=== PATIENT | female | born 1955 | race Caucasian/White ===

== ENCOUNTER 2024-10-23 13:04 | Outpatient (RCR) | payer MEDICARE, SELFPAY ==
--- NOTE | 2024-10-23 13:58 | CTCFLWUP_ITS ---
[facility] [address] [place], [place] [address] FOLLOW-UP NOTE Date: 10/23/2024 MR#: [id number] Name: JOSHUA FRIEND : 1955 Dx: C50.112 Malignant neoplasm of central portion of left female breast Identification. Patient with history of stage IIIc left breast CA and DCIS right breast. Had large 9.5 centimeters or T3 lesion and 22 positive lymph nodes. Status post bilateral mastectomy 2009 and reconstructive surgery 2010 all done in [facility] [place]. Adjuvant chemoradiation Avastin for 1 year postop according to patient. Does not ever remember being prescribed or taking any estrogen hormone regulators or Herceptin. PET scan unremarkable 09/11/2021. Repeat PET scan 09/17/2022 focal 1.4 cm uptake upper inner margin of reconstructed left breast SUV 7.94. There were nonspecific multifocal cutaneous uptake seen in the lower outer quadrant of the reconstructed left breast, lower SUV than the upper inner quadrant. An ultrasound done of the left breast 11/04/2022 revealing 2.3 cm probably benign likely foreign body in the left breast and follow-up ultrasound 3 months recommended. As I examine her today there is post surgical and radiation changes in the inner quadrant of the left breast. No clear sign of recurrence noted in either breast or regional nodes sites. Ordered an ultrasound of the left breast to be done at [facility] where she had it done previously and I will see her back in 3 months. Electronically signed by: Ridge Mortensen M.D. 10/23/2024 1:55 PM
== END 2024-11-14 23:59 | disposition home or self-care (01) ==
LOC: SCTC 13:04
PROVIDERS: PCP Physician Assistant; Referring Provider Physician Assistant; Visit Provider Radiology Therapeutic Radiology
DX: Z08 Encounter for follow-up examination after completed treatment for malignant neoplasm (principal); Z85.3 Personal history of malignant neoplasm of breast; Z90.13 Acquired absence of bilateral breasts and nipples; Z92.21 Personal history of antineoplastic chemotherapy
CPT/HCPCS: 99212; G0463

== ENCOUNTER → 2024-11-27 | Outpatient (CLI) | payer MEDICARE, SELFPAY ==
--- NOTE | 2024-11-27 13:30 | ECHO_ITS ---
Transthoracic Echo Report Ht (in): 63 Wt (lb): 130 Exam Location: Echo Lab Status: O Sales Porter: YOAN Massey^^^^ Indications: Procedure Performed: BP: / HR: MEASUREMENTS (Male / Female) Normal Values 2D ECHO LV Diastolic Diameter PLAX 4.5 cm 4.2 - 5.9 / 3.9 - 5.3 cm LV Systolic Diameter PLAX 2.8 cm IVS Diastolic Thickness 1.1 cm 0.6 - 1.0 / 0.6 - 0.9 cm LVPW Diastolic Thickness 1.1 cm 0.6 - 1.0 / 0.6 - 0.9 cm LV Relative Wall Thickness 0.5 LVOT Diameter 1.8 cm Aortic Root Diameter 3.3 cm LA Systolic Diameter LX 3.5 cm 3.0 - 4.0 / 2.7 - 3.8 cm DOPPLER AV Peak Velocity 123.5 cm/s AV Peak Gradient 6.1 mmHg AV Mean Gradient 4.0 mmHg AV Velocity Time Integral 23.1 cm LVOT Peak Velocity 94.6 cm/s LVOT Peak Gradient 3.6 mmHg LVOT Velocity Time Integral 23.9 cm AV Area Cont Eq vti 2.6 cm? AV Area Cont Eq pk 1.9 cm? MV Area PHT 3.3 cm? Mitral E Point Velocity 54.5 cm/s Mitral A Point Velocity 80.4 cm/s Mitral E to A Ratio 0.7 LV E' Lateral Velocity 8.5 cm/s Mitral E to LV E' Lateral Ratio 6.4 LV E' Septal Velocity 7.3 cm/s Mitral E to LV E' Septal Ratio 7.4 TR Peak Velocity 266.0 cm/s TR Peak Gradient 28.3 mmHg PV Peak Velocity 151.0 cm/s PV Peak Gradient 9.1 mmHg RVOT Peak Velocity 87.2 cm/s FINDINGS Left Ventricle Normal left ventricular size, wall thickness, systolic function with no obvious regional wall motion abnormalities. There is grade I diastolic dysfunction of the left ventricle (impaired relaxation pattern). The left ventricular ejection fraction is normal, estimated at 60-65%. Right Ventricle The right ventricle is normal in size and systolic function. The estimated right ventricular systolic pressure, 30 mmHg. Left Atrium The left atrium is normal by two-dimensional, color flow and Doppler imaging with no structural abnormalities, no thrombus formation present. Right Atrium The right atrium is normal by two-dimensional imaging, color flow and Doppler imaging with no structural abnormalities, no thrombus formation present. Atrial Septum The interatrial septum appears normal with no evidence of a shunt. Aorta The aorta is normal by two-dimensional, color flow and Doppler interrogation. Mitral Valve Trace to mild mitral regurgitation. Mild mitral annular calcification. Aortic Valve Aortic valve sclerosis. Tricuspid Valve There is mild tricuspid valve regurgitation. Pulmonic Valve Trivial pulmonic valve regurgitation. Vessels The pulmonary artery appears normal. The inferior vena cava pulmonary and hepatic veins appear normal. Pericardium The pericardium is normal by two-dimensional imaging. There is no significant pericardial effusion. CONCLUSIONS Indication: Abnormal EKG and history of malignancy Normal LV size and function with an estimated EF of 60 to 65%. Normal diastolic function stage I Normal RV size and function with an estimated RVSP of 25 to 30 mmHg. Mild aortic valve sclerosis without stenosis. Mild MR & TR Hank Barajas (Electronically Signed) Final Date: 27 Nov 2024 20:40
== END | disposition home or self-care (01) ==
LOC: SDIM 13:38
PROVIDERS: PCP Family Medicine; Referring Provider Family Medicine; Visit Provider Family Medicine
DX: I08.3 Combined rheumatic disorders of mitral, aortic and tricuspid valves (principal)
CPT/HCPCS: 93306